=== PATIENT | female | born 1950 | race African-American/Black ===

== ENCOUNTER → 2017-05-19 | Outpatient (CLI) | payer OTHER ==
[~2017-05-19] MED LIST: AMLODIPINE BESY10 MG PO; ANTIVERT25 M1 PO; ASPIR 8181 MG PO; ASPIRIN325 PO; ATIVAN0.5 MG PO; ATIVAN1 MG PO; CLONIDINE0.1 PO; COREG25 MG PO; ENOXAPARIN40 MG/0.1 SUBQ; FLONASE 0.05%50 MCG NASAL; HYDROCODON-ACE1 EAC7 PO; KLOR-CON 10 ER10 MEQ PO; LASIX 40 MG TAB40 M2 PO; LOSARTAN-HCTZ1 EAC3 PO; MS CONTIN15 MG PO; NEURONTIN 300300 M1 PO; OMEPRAZOLE20 M2 PO; ROBAXIN 750 MG750 M1 PO; ROXICODONE5 MG PO; TUMS200 MG; ULTRAM 50MG TAB50 MG PO; VITAMIN D400 UNIT PO; VITAMIN E100 UNI1 PO; ZANAFLEX4 MG PO
== END ==
LOC: RAD 01:55
DX: Z12.31 Encounter for screening mammogram for malignant neoplasm of breast (principal)